=== PATIENT | male | born 1945 | race Caucasian/White ===

== ENCOUNTER → 2017-12-24 | Outpatient (REF) ==
[2017-07-18 15:27] VITALS: BMI 35.5
[~2017-12-24] MED LIST: ALBU8.5H IH; AMLO-96 PO; ASPI-1471 PO; ATOR10TA65 PO; ATOR40TA24 PO; DIV500 PO; DIVA-1 PO; DIVA-6 PO; ESOM40CA6 PEG; EZET10TA41 PO; EZET1TAB53 PO; GUAI480S48 PO; HTN MED; HYDR12.556 PO; INDO-1 PO; INDO50CA92 PO; LEVE500T73 PO; LISI-374 PO; LOSA100T67 PO; MAGIC; METF-410 PO; METF-420 PO; NAPR220C12 PO; OLME1TAB67 PO; OMEP-125 PO; OMEP-218 PO; ONDA4TAB97 PO; OXYC-865 PO; OXYGENHOME INH; RANI-324 PO; SIMV-44 PO; TRIBENZOR; VALS320T12 PO
[2017-12-24 08:06] LABS: LDL CHOLESTEROL 56 mg/dl
== END ==
DX: Z02.9 Encounter for administrative examinations, unspecified (principal)